=== PATIENT | male | born 1945 | race Caucasian/White ===

== ENCOUNTER 2020-07-31 15:30 | Outpatient (CLI) | payer MEDICARE, SELFPAY ==
--- NOTE | ~2020-07-31 | XR_ITS ---
EXAMINATION: XR shoulder RT min 2V DATE: 07/31/2020 15:49 INDICATION: Pain at the right acromioclavicular joint and decreased range of motion at the right shou lder TECHNIQUE: AP internally and externally rotated, AP oblique externally rotated and transscapular Y vi ews of the right shoulder were obtained. COMPARISON: None FINDINGS: Normal alignment. No fracture. Glenohumeral joint is normal. Moderate acromioclavicular osteoarthrit is with inferiorly directed osteophytes. Soft tissues are unremarkable. Visualized portions of the nolan ngs are clear. IMPRESSION: Moderate right acromioclavicular osteoarthritis. Reviewed, dictated and finalized at location B.
== END 2020-07-31 15:31 | disposition home or self-care (01) ==
PROVIDERS: PCP Family Medicine; Visit Provider Family Medicine
DX: M25.511 Pain in right shoulder (principal); M19.011 Primary osteoarthritis, right shoulder
CPT/HCPCS: 73030

== ENCOUNTER → 2023-05-23 12:14 | Outpatient (CLI) | payer MEDICARE, SELFPAY ==
--- NOTE | ~2023-05-23 | XR_ITS ---
EXAMINATION: XR abdomen/kub 1V DATE: 05/23/2023 12:24 INDICATION: Left flank pain. TECHNIQUE: A supine view of the abdomen on 2 radiographs was obtained. COMPARISON: CT abdomen and pelvis 02/25/2019 FINDINGS: There are no dilated loops of bowel. There are phleboliths in the pelvis. IMPRESSION: 1. No visible urolithiasis. Reviewed, dictated and finalized at location B. IMPRESSION: 1. No visible urolithiasis.
== END ==
PROVIDERS: PCP Family Medicine; Visit Provider Nurse Practitioner Family
DX: R10.9 Unspecified abdominal pain (principal)
CPT/HCPCS: 74018

== ENCOUNTER → 2023-06-02 09:15 | Outpatient (CLI) | payer MEDICARE, SELFPAY ==
--- NOTE | ~2023-06-02 | MR_ITS ---
EXAMINATION: MR lumbar spine wo con DATE: 06/02/2023 09:42 INDICATION: Low back pain. TECHNIQUE: Magnetic resonance imaging (MRI) of the lumbar spine was performed without intravenous con trast. Sequences included sagittal T2-weighted FSE, sagittal T2-weighted FS FSE, sagittal T1-weighted FSE, and axial T2-weighted FSE. COMPARISON: None FINDINGS: There is 3 mm retrolisthesis of L2 on L3 and L3 on L4. Vertebral body heights are normal. T here is moderately decreased disc height at L2-L3 and L3-L4. The distal spinal cord signal intensity is normal. The conus medullaris is at L1-L2. The following disc levels are specifically discussed: L1-L2: The disc does not extend beyond the endplate margin. There is mild bilateral facet joint osteo arthritis. There is no neural foraminal stenosis. There is no central canal stenosis. L2-L3: The disc is bulging and has an annular fissure. There is moderate right and mild left facet justine int osteoarthritis. There is mild bilateral neural foraminal stenosis. There is mild central canal st enosis. L3-L4: The disc is bulging and has an annular fissure. There is moderate bilateral facet joint osteoa rthritis. There is mild right and moderate left neural foraminal stenosis. There is mild central jovanni l stenosis. L4-L5: The disc is bulging and has an annular fissure. There is severe bilateral facet joint osteoart hritis. There is a 5 mm synovial cyst of right facet joint in the epidural space. There is mild bilat eral neural foraminal stenosis. There is moderate central canal stenosis. There is severe stenosis of right lateral recess. L5-S1: The disc is bulging. There is severe bilateral facet joint osteoarthritis. There is mild bilat eral neural foraminal stenosis. There is mild central canal stenosis. IMPRESSION: 1. Moderate lumbar spondylosis. Reviewed, dictated and finalized at location A.
== END ==
PROVIDERS: PCP Family Medicine
DX: M54.50 Low back pain, unspecified (principal); M43.06 Spondylolysis, lumbar region
CPT/HCPCS: 72148

== ENCOUNTER → 2023-08-08 11:17 | Outpatient (CLI) | payer MEDICARE, SELFPAY ==
--- NOTE | ~2023-08-08 | CT_ITS ---
Non-contrast CT scan of the Abdomen and Pelvis Clinical indication: Kidney stone Technique: 2.5 mm axial scans were obtained through the abdomen and pelvis without intravenous or or al contrast. Dose reduction technique was used on this scan by utilizing automated exposure control a nd iterative reconstruction technique. The dose-length product (DLP) was 262.58 mGy-cm. Findings: Images through the lung bases reveal no abnormalities. There is a probable 4 mm distal left ureteral stone, but no hydronephrosis. No right renal or right u reteral stone. No right hydronephrosis. The liver, spleen, pancreas, gallbladder, and adrenals appear normal. There are atherosclerotic calci fications of the aorta. There is no evidence of bowel obstruction. Images through the pelvis were performed. There is no evidence of ascites or lymphadenopathy. Urinary bladder unremarkable. No pelvic mass seen. No ascites. Impression: 4 mm distal left ureteral stone, but no hydronephrosis. Reviewed, dictated and finalized at [facility]. Impression: 4 mm distal left ureteral stone, but no hydronephrosis.
== END ==
PROVIDERS: PCP Family Medicine
DX: N20.0 Calculus of kidney (principal)
CPT/HCPCS: 74176

== ENCOUNTER → 2023-09-04 08:17 | Outpatient (CLI) | payer MEDICARE, SELFPAY ==
--- NOTE | ~2023-09-04 | US_ITS ---
Renal-Bladder ultrasound Clinical History: Ureterolithiasis Technique: Real-time sonographic imaging of the kidneys and urinary bladder was performed. Findings: The right kidney measures 10.7 cm in length and the left kidney measures 10.5 cm. There is no hydronephrosis or renal calculus identified. Renal cortical echogenicity is within normal limits. No renal mass lesion is identified. The urinary bladder is moderately distended at the time of this exam. No intraluminal echoes are iden tified. No abnormal wall thickening is seen. Impression: Unremarkable ultrasound of the kidneys and urinary bladder. Reviewed, dictated and finalized at location M. SCAN TECHNICIAN Impression: Unremarkable ultrasound of the kidneys and urinary bladder.
== END ==
PROVIDERS: PCP Family Medicine
DX: N20.1 Calculus of ureter (principal)
CPT/HCPCS: 76775

== ENCOUNTER 2024-06-21 09:06 | Emergency (ER) | payer MEDICARE, SELFPAY ==
[2024-06-21] VITALS (10 sets, daily range): BP systolic 136–144; BP diastolic 67–84; PULSE 59–78; RESP 14–18; TEMP 36.5; O2SAT 97–99
--- NOTE | ~2024-06-21 | CT_ITS ---
CT of the Abdomen and Pelvis: Indication: Left lower quadrant pain Technique: 2.5 mm axial scans were obtained through the abdomen and pelvis following intravenous adm inistration of 100 cc of Omnipaque 350. Dose reduction technique was used on this scan by utilizing a utomated exposure control and iterative reconstruction technique. The dose-length product (DLP) was 4 33.92 mGy-cm. COMPARISON: 08/08/2023 Findings: Scans through the lung bases are unremarkable. Probable diffuse hepatic steatosis. The spleen, pancreas, gallbladder, adrenals and right kidney are within normal limits. There is a 5 mm left UVJ stone, with mild to moderate left hydroureteronephrosi s, and extensive left perinephric stranding/fluid. There are atherosclerotic calcifications of the ao rta. No lymphadenopathy. No bowel obstruction or bowel wall thickening. There is no evidence to suggest acute appendicitis. Images through the pelvis were performed. Urinary bladder otherwise unremarkable. No pelvic mass seen . No ascites. Small fat-containing right inguinal hernia noted. Impression: 5 mm left UVJ stone, with mild to moderate left hydroureteronephrosis and extensive left perinephric stranding/fluid. Probable diffuse hepatic steatosis. Reviewed, dictated and finalized at location . Impression: 5 mm left UVJ stone, with mild to moderate left hydroureteronephrosis and exten sive left perinephric stranding/fluid. Probable diffuse hepatic steatosis.
[2024-06-21 09:33] LABS: Basophils Percent Auto 0.4 % (0.2-1.2); Eosinophils Percent Auto 0.3 % (0-4.4); Hematocrit 44.4 % (42.0-52.0); Hemoglobin 14.4 g/dL (14.0-18.0); Immature Granulocyte Absolute 0.04 K/mm3 (0.00-0.031); Immature Granulocyte Percent A 0.4 % (0-0.5); Lymphocytes Absolute Auto 1.49 K/mm3 (0.9-3.2); Lymphocytes Percent Auto 13.8 % (18.3-44.2); Mean Corpuscular HGB Conc 32.4 g/dl (32-36); Mean Corpuscular Hemoglobin 31.5 pg (26-34); Mean Corpuscular Volume 97.2 fl (80-100); Mean Platelet Volume 10.7 fl (7.4-10.4); Monocytes Absolute Auto 1.1 K/mm3 (0.1-0.6); Monocytes Percent Auto 9.8 % (2.6-8.5); Neutrophils Absolute Auto 8.2 K/mm3 (1.3-6.7); Neutrophils Percent Auto 75.3 % (45.5-73.1); Platelet Count Result 159 k/mm3 (150-375); Red Blood Count 4.57 M/mm3 (4.6-6.20); Red Cell Distribution Width 13.2 % (11.5-14.5); White Blood Count 10.8 K/mm3 (4.5-10.0)
[2024-06-21 09:37] LABS: Alanine Aminotransferase 19 U/L (6-50); Albumin Level 4.2 g/dL (3.5-5.1); Alkaline Phosphatase 41 U/L (38-126); Anion Gap 9 mmol/L (4-12); Aspartate Amino Transferase 28 U/L (17-59); Bilirubin,Total 0.7 mg/dL (0.2-1.3); Blood Urea Nitrogen 30 mg/dL (9-20); Calcium 8.8 mg/dL (8.4-10.2); Carbon Dioxide 23 mmol/L (22-30); Chloride 102 mmol/L (98-107); Estimated CRCL calculation 56 ml/min; Estimated Glomerular Filt Rate > 60; Glucose 122 mg/dL (65-110); Lipase 75 U/L (23-300); Potassium 4.7 mmol/L (3.4-5.0); Sodium 134 mmol/L (137-145)
--- NOTE | 2024-06-21 09:41 | ED.ABDPAIN ---
HPI - Abdominal Pain General Chief Complaint: Abdominal Pain Stated Complaint: abd pain Time Seen by Provider: 06/21/24 09:19 Source: patient and family Mode of arrival: ambulatory Limitations: no limitations History of Present Illness HPI narrative: Patient presents with left lower quadrant abdominal pain associated with vomiting and diarrhea. Symptoms started this morning. He notes this has happened twice previously in the past few years. Does not regularly follow with a white lead grinder. No prior diagnoses of diverticular disease though his last colonoscopy was performed approximately 15 years ago (here at [place], believes a Dr Lee - last name unknown). He does have a history of kidney stone that spontaneously resolved and did not require surgical intervention or procedure. Does feel slightly nauseated at this time. His last bowel movement this morning was watery but he denies any blood in it. Last oral intake was last evening approximately 6:00 p.m.. He does continue to have an appetite. No fevers although he felt cold earlier. His urine output has been okay, possibly slightly decreased. History of prostatectomy after prostate cancer diagnosis. Related Data Home Medications Medication Instructions Recorded Confirmed dorzolamide-timolol (PF) 2 %-0.5 % 1 drp EACH EYE ONCE 08/03/21 04/05/24 eye drops in a dropperette latanoprost 0.005 % eye drops 1 drp EACH EYE DAILY 08/03/21 04/05/24 Allergies Allergy/AdvReac Type Severity Reaction Status Date / Time No Known Allergies Allergy Mild Verified 04/05/24 13:19 [facility] Past Medical History Medical History (Updated 06/21/24 @ 10:48 by Anuja oFng MD) Hepatitis C antibody test negative (02/21/20) Kidney stones Prostate cancer Vomiting Surgical History Surgical History H/O hemorrhoidectomy History of colonoscopy approx 1998 @ [facility]; History of prostatectomy (03/30/19) Family History Family History Sibling Hypertension Malignant neoplasm of prostate Mother Hypertension, Onset Age: 103 Father Hypertension, Onset Age: 92 Malignant neoplasm of prostate, Onset Age: 92 Social History Social History Social History: Caffeine-tea Smoking status: Former smoker Tobacco type: cigars Alcohol intake: current Substance use: never Substance use type: does not use Lack of Transportation: No Lack of Food: Never True Current Housing: I Have Housing Concerned About Future Housing: No Difficulty Paying Gas/Electric Bills: No Difficulty Paying for Meds: No Currently Unemployed: No Difficulty w/ Childcare or Family Care: No Living arrangements: with family Occupation/Education: retired Gender identity (if verbalized by the patient): Male Sexual Orientation (if Verbalized by the Patient): Straight or Heterosexual Agree to blood products: Yes Exam Narrative: GENERAL: Well-appearing, well-nourished, and in no acute distress. HEAD: Normocephalic, atraumatic. EYES: Non injected, non icteric ENT: Nares clear, no rhinorrhea or epistaxis. Moist mucous membranes. NECK: Supple. CHEST: Speaking in full sentences. No respiratory distress. HEART: Regular rate and rhythm. . ABDOMEN: Soft, nondistended. No tenderness to palpation including in the left lower quadrant. No rigidity or guarding. Not peritoneal. Well-healed surgical scar superior umbilicus and lateral umbilicus. EXTREMITIES: Normal range of motion. No lower extremity edema. SKIN: Warm, dry, no rash. NEURO: No focal deficits. Alert and oriented x3. PSYCH: Normal mood and affect. Course Vital Signs Vital signs: Vital Signs Temperature 97.7 F 06/21/24 09:07 Pulse Rate 60 06/21/24 09:07 Respiratory Rate 18 06/21/24 09:07 Blood Pressure 13
[2024-06-21 10:13] LABS: Appearance Urine Clear (Clear); Color Urine Yellow (Yellow); Protein Urine Negative (Negative); Specific Grav Ur > 1.030 (1.001-1.035); pH Urine 5.5 (5.0-9.0)
[2024-06-21 10:14] LABS: Add Urine Microscopic? NO; Bilirubin Urine Negative (Negative); Blood Urine Negative (Negative); Glucose Urine UA Negative (Negative); Ketones Urine Negative (Negative); Leukocyte Esterase Ur Negative LEU/UL (Negative); Nitrate Urine Negative (Negative); Urobilinogen Urine 0.2 mg/dL (<2.0)
[2024-06-21] MEDS: SODIUM CHLORIDE 0.9% IV 1,000 ML 999 ML IV CONT (10:25)
[2024-06-21] MEDS: ONDANSETRON INJ 4 MG/2 ML VIAL IV PUSH (10:26)
[2024-06-21] MEDS: MORPHINE SULFATE (*CRX) 4 MG/ML INJ IV PUSH (10:26)
[2024-06-21 10:29] LABS: Magnesium 1.7 mg/dL (1.6-2.3)
[2024-06-21] MEDS: TAMSULOSIN HCL 0.4 MG CAPSULE PO (10:58)
[2024-06-21] MEDS: KETOROLAC 15 MG/ML VIAL (*BKC) IV PUSH (11:00)
== END 2024-06-21 12:00 | disposition home or self-care (01) ==
PROVIDERS: Emergency Provider Student in an Organized Health Care Education/Training Program; PCP Family Medicine
DX: N13.2 Hydronephrosis with renal and ureteral calculous obstruction (principal); D72.829 Elevated white blood cell count, unspecified; R79.89 Other specified abnormal findings of blood chemistry; K76.0 Fatty (change of) liver, not elsewhere classified; Z87.891 Personal history of nicotine dependence
CPT/HCPCS: 36415; 74177; 80053; 81003; 83690; 83735; 85025; 96361; 96374; 96375; 99284; A9270; J1885; J2270; J2405; J7030; Q9967

== ENCOUNTER 2024-10-08 08:56 | Outpatient (CLI) | payer MEDICARE, SELFPAY ==
--- NOTE | ~2024-10-08 | XR_ITS ---
EXAMINATION: XR heel LT min 2V DATE: 10/08/2024 09:03 INDICATION: One month of left heel pain TECHNIQUE: Lateral and axial views of the left calcaneus were obtained. COMPARISON: None. FINDINGS: Alignment is normal. No fracture. Joint spaces are normal. No cortical erosions or periosteal reactio n. There appears to be fusiform thickening of the Achilles tendon suggestive of tendinosis. Soft tiss ues are otherwise unremarkable. No ankle joint effusion. IMPRESSION: 1. Suggestion of Achilles tendinosis although assessment is limited with plain radiographs. Otherwise unremarkable radiographs of the left heel/hindfoot. Reviewed, dictated and finalized at location A. RINTENDENT STEVEDORING
== END 2024-10-08 08:57 | disposition home or self-care (01) ==
LOC: GOSHIMG 08:57
PROVIDERS: PCP Family Medicine; Visit Provider Nurse Practitioner
DX: M79.672 Pain in left foot (principal); G89.29 Other chronic pain
CPT/HCPCS: 73650

== ENCOUNTER 2025-03-01 14:18 | Outpatient (CLI) | payer MEDICARE, SELFPAY ==
--- NOTE | ~2025-03-01 | XR_ITS ---
XR hip RT 2V w AP pelvis Ordering provider: Carrol Tyler PULMONARY FELLOW-C History: . Pain in right hip, no injury . Comparison: None. FINDINGS: BONES: Sclerotic area in the right femoral neck. CT evaluation advised. HIP JOINT SPACES: Normal. SACROILIAC JOINT SPACES/LUMBAR SPINE: The sacroiliac joint spaces are normal. Mild degenerative davis es of the visualized lower lumbar spine. PUBIC SYMPHYSIS: Normal. SOFT TISSUES: Normal. IMPRESSION: Sclerotic area in the right femoral neck. CT evaluation to exclude a fracture is advised Reviewed, dictated and finalized at location A. IMPRESSION: Sclerotic area in the right femoral neck. CT evaluation to exclude a fracture i s advised
== END 2025-03-01 14:19 | disposition home or self-care (01) ==
LOC: GOSHIMG 14:19
PROVIDERS: PCP Family Medicine; Visit Provider Nurse Practitioner
DX: M84.351A Stress fracture, right femur, initial encounter for fracture (principal); X58.XXXA Exposure to other specified factors, initial encounter
CPT/HCPCS: 73502

== ENCOUNTER 2025-03-03 15:15 | Outpatient (CLI) | payer MEDICARE, SELFPAY ==
--- NOTE | ~2025-03-03 | CT_ITS ---
EXAMINATION: CT femur RT wo con DATE: 03/03/2025 15:36 INDICATION: Abnormal extra the right hip raising concern for fracture. TECHNIQUE: High resolution computed tomography (CT) of the right femur was performed without intraven ous contrast. Additional sagittal and coronal reconstructions were performed. Automated exposure cont rol and iterative reconstruction technique were employed. The dose-length product was 1102.83 mGy-cm. COMPARISON: None FINDINGS: Bone alignment is normal. No fracture. Mild osteoarthritis at the right hip and knee with mild subart icular cystlike changes along the superior rim of the right acetabulum and at the patellar apical rid ge the lateral facet and lateral trochlea. There is a small right knee joint effusion. 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 Small fat-containing right inguinal hernia. Visualized portion of the right hemipelvis otherwise unr emarkable. No pathologically enlarged right pelvic or inguinal lymphadenopathy. Mild scattered athero sclerotic calcifications along the right common femoral, femoral and popliteal arteries. Soft tissues in the right thyroid otherwise unremarkable. IMPRESSION: 1. No fracture or other acute osseous abnormality. 2. Mild right hip and knee osteoarthritis with small right knee joint effusion. Reviewed, dictated and finalized at location A.
--- OUTSIDE RECORDS SUMMARY | 2025-03-03 15:19 | XMS_ITS | Continuity of Care Document ---
Author Organization [facility] Address [address] [address] [place] [address] Phone Care Team Providers Care Relief Captain Name Role Phone [facility] Unavailable Unavail able Renee Rodriguez Unavailable Unavailable Procedures Procedure Date Progressive Lens, Plastic Ultra Deluxe Frame Progressive Lens Per Lens Polycarb Lens Per Lens Scratch Resistant Coating UV Coat Advance Directives Directive Yes / No Effective Date File Name No Information Encounters Encounter Description Practice Location Reason(s) For Visit Diagnoses Date Provider Providers Copied on Encounter [facility], [address] [place] [address] [address], [place], [place], [id number], [place] tel:[phone] [facility] No Information 7 [facility] [address] [facility], [address], [id number] , [place]. [phone] Consulting Provider: Renee Rodriguez, [address] [place] [address], [address]. tel:[phone] [facility], [address] [place] [address] [address], [place], [place], [id number], [place] tel:[phone] [facility] No Information 7 [facility] [address] [facility], [address], [id number] , [place]. [phone] Referring Provider: Ben Santos MD , [address] [place] [address], [address]. tel:[phone] lting Provider: Renee Rodriguez, [address] [place], [address]. tel:[phone] Family History Family Member Type Diagnosis Age At Onset No Information Payers Payer name Insurance type Covered alliance party ID Authoriza tion(s) No Information Social History Type Description Quantity Date Captured Comments Sex Male Smoking Status No Information Chief Complaint And Reason For Visit No Information Reason For Referral Reason For Referral No Information History Of Present Illness Encounter Date Complaint History Of Prese nt Illness No Information Functional Status Date Functional Assessmen t No Information Instructions Date Instruction Additional Infor mation No Information Assessments Type Assessment Date No Information Patient Care Teams Name Effective Dates (start - stop) Status Members No Information
--- OUTSIDE RECORDS SUMMARY | 2025-03-03 15:19 | XMS_ITS | Data Portability ---
Author Organization [employer], [facility] Address [address] [address] Care Team Providers Care Braddisher Name Role Phone TRACEY DEWITT Referring Provider Assessment No assessment recorded. Plan of Treatment Reminders Order Date Submit Date Provider Last Modified By Organization Details Last Modified Time Details Appointments None recorded. Lab None recorded. Referral None recorded. Procedures None recorded. Surgeries None recorded. Imaging XR, knee - WEIGHT BEARING AP, PA FLEX AND LATERAL VIEWS WITH A STANDARD [place] [facility] 2022 023 [email or web address] Not available 3 16:15:30 XR, lumbar spine 2022 023 [email or web address] Not available 3 16:00:01 MRI, lumbar spine, w/o contrast - Patient has failed conservativ e treatments greater than 6 weeks , PT NSAID's 2022 023 [email or web address] Not available 3 16:44:43 x-ray, ankle - room 7 2014 015 [email or web address] Not available 6 09:21:58 Medication Orders None recorded. Patient TargetsNo targets recorded. Patient InstructionsNo instructions recorded. Reason for Referral None Reported. Results Created Date Observation Date Name Description Value Unit Range Abnormal Flag Note LastModifiedBy Organization Detail LastModifiedTime 06/02/2006/02/2023 MRI, lumba r spine , w/o contr ast No observ ation record ed. [email or web address] [facility] [address], [place], [address], 06/03/2023 10:35:57 Result Notes None recorded. Problems Name Problem SNOMED Code Status Onset Date Resolution Date Notes Provider Name and Address Organization Details Recorded Time Heel pain 3248605 Active Mindy Perez [address], [place], [address], [place] [facility] 5 18:47:30 Achilles tendinitis 68836019 [place] [address], [place], [address], [place] [facility] 5 07:33:58 Strain of Achilles tendon 82721839 [place] [address] [facility] [address], [place], [address], [place] [facility] 5 07:33:58 Ankle pain 124938116 [place] [address], [place], [address], [place] [facility] 5 07:33:58 Problem Notes None recorded. Procedures Surgical History Date Name Laterality Status Provider Name and Address Organization Details Recorded Time 3 Generic Procedure completed BERHANE MCKENNA [address] [facility] [address] [facility],[address], [place], [address], [place] [facility] 06/12/2023 15:22:57 3 Generic Procedure completed BERHANE MCKENNA [address] [address] [facility] [address], [place], [address], [place] [facility] 05/13/2023 10:27:30 5 Generic [place] [address] [address] [facility] [address], [place], [address], [place] [facility] 05/09/2015 10:17:06 Imaging Results Imaging Date Name Status LastModified by Organiz [facility] Details LastModified Time 06/02/2023 MRI, lumbar spine, w/o contrast completed [email or web address] [facility] [address], [place], [address], 06/03/2023 10:35:57 Procedure Notes None recorded. Medical Equipment None Reported. Allergies No known drug allergies Medications Name Sig Start Date Stop Date Status Note LastModified by Organization Details LastModified Time latanoprost 0.005 % eye drops INSTILL 1 DROP INTO EACH EYE AT BEDTIME active Not Available Not Available No t Available pravastatin 40 mg tablet TAKE 1 TABLET BY MOUTH EVERY DAY AT BEDTIME active Not Available Not Available No t Available hydrocodone 5 mg-acetamino phen 325 mg tablet Take 1 or 2 tabs PO Q 4-6 PRN Pain active Not Available Not Available No t Available sildenafil 100 mg tablet TAKE ONE TABLET BY MOUTH APPROXIMATE LY 30 MINUTES TO 4 HOURS BEFORE SEXUAL ACTIVITY. DO NOT USE MORE THAN ONE DOSE DAILY active Not Available Not Available No t Available pravastatin 10 mg tablet 1 tablet every day by oral route. active Not Available Not Available No t Available tamsulosin 0.4 mg capsule TAKE 1 CAPSULE BY MOUTH ONCE DAILY FOR 30 DAYS active Not Available Not Available No t Available lisinopril 10 mg tablet TAKE 1 TABLET BY MOUTH ONCE DAILY active Not Available Not Available No t Available lidocaine 5 % topical patch APPLY ONE PATCH TO MOST PAINFUL AREA AND LEAVE ON FOR UP TO 12 HOURS. ONLY USE ONE PATCH PER DAY active Not Available Not Available No t Available dorzolamide 22.3 mg-timolol 6.8 mg/mL eye drops INSTILL 1 DROP INTO EACH EYE ONCE DAILY IN THE MORNING active Not Available Not Available No t Available pravastatin 20 mg tablet TAKE 1 TABLET BY MOUTH ONCE DAILY active Not Available Not Available No t Available triamcinolon e acetonide 0.1 % lotion APPLY LOTION TOPICALLY TWICE DAILY active Not Available Not Available Not Available timolol maleate 0.5 % eye drops 1 drop every day by ophthalmic route. active Not Available Not Available No t Available morphine 15 mg immediate release tablet TAKE 1/2 (ONE-HALF) TABLET BY MOUTH EVERY 4 HOURS FOR 5 DAYS NEEDED FOR PAIN active Not Available Not Available No t Available ondansetron 4 mg disintegrati ng tablet active Not Available Not Available No t Available brimonidine 0.15 % eye drops active Not Available Not Available Not Available neomycin-betito itracin-poly -HC 3.5 mg-400-10,00 0 unit/g-1 % eye ointment active Not Available Not Available Not Available Travatan Z 0.004 % eye drops 1 drop every day by ophthalmic route. active Not Available Not Available No t Available AzaSite 1 % eye drops active Not Available Not Available No t Available Suprep Bowel Prep Kit 17.5 gram-3.13 gram-1.6 gram oral solution active Not Available Not Available Not Available Lumigan 0.01 % eye drops active Not Available Not Available Not Available Cosopt (PF) 2 %-0.5 % eye drops in a dropperette active Not Available Not Available Not Available brimonidine tartrate (bulk) 2012 active Not Available Not Available Not Avai lable Paxlovid 300 mg (150 mg x 2)-100 mg tablets in a dose pack TAKE 3 TABLETS TOGETHER (TWO 150 MG NIRMATRELVI R TABLETS AND ONE 100 MG RITONAVIR TABLET) BY MOUTH TWICE DAILY FOR 5 DAYS. active Not Available Not Available No t Available Vitals Date Recorded Body weight Heart rate Body mass index (BMI) Body height Systolic blood pressure Diastolic blood pressure Provider Name and Address Organization Details Last Updated DateTime 5 39435.7 029 g 65 /min 23.1 kg/m2 182.88 cm 127 mm[Hg] 79 mm[Hg] Kanwal Esposito [facility] [email or web address] 5 14:49:48 Date Recorded Body weight Body height Body mass index (BMI) Provider Name and Address Organization Details Last Updated DateTime 10/04/2015 14202.7029 g 182.88 cm 23.1 kg/m2 Anahy Vázquez [facility] [email or web address] 10/04/2015 10:25:35 Date Recorded Body height Body mass index (BMI) Body weight Heart rate Oxygen saturation Oxygen saturation in Arterial blood by Pulse oximetry Systolic blood pressure Diastolic blood pressure Provider Name and Address Organization Details Last Updated DateTime 3 182.88 cm 23.1 kg/m2 45011.7 g 58 /min 98 % 98 % 120 mm[Hg] 78 mm[Hg] Daily West [facility] [employer] [facility], [employer] 3 09:10:24 Date Recorded Body height Body weight Provider Name and Address Organization Details Last Updated DateTime 06/05/2023 182.88 cm 18489.7 g Kanwal Esposito [employer] [facility], [employer] 06/05/2023 15:01:25 Date Recorded Body height Provider Name an d Address Organization Details Last Updated DateTime 06/30/2023 182.88 cm Trina Mcbride [employer] [facility], [employer] 06/30/2023 15:28:11 Social History Question Answer Notes LastModified by Organizat ion Details LastModified Time Tobacco Smoking Status Unknown If Ever Smoked Mindy Perez [address], [place], [address], [employer] [facility], [employer] 03/29/2015 07:26:25 Auto Related Injury? No Information not available 06/30/2023 What Is Your Level Of Caffeine Consumption? Moderate Information not available 03/27/2015 Diabetes No Information no t available 06/30/2023 What Type Of Diet Are You Following? REGULAR Information not available 03/27/2015 Education Post Graduate Information not available 06/30/2023 Who Is Your Employer? Retired Information not available 03/27/2015 Which Of Your Hands Is Dominant? Right Information not available 03/27/2015 Hard Of Hearing Or Deaf In One Or Both Ears? No Information not available 06/30/2023 High Blood Pressure Yes Information not available 06/30/2023 High Cholesterol Yes Informat ion not available 06/30/2023 Hobbies/Activiti es Golf, Wine Making Information not available 06/30/2023 Single Or Multi-level Home/work? Multi Level Home Information not available 06/30/2023 Legally Blind In One Or Both Eyes? No Information not available 06/30/2023 Live Alone Or With Others? With Others Information not available 06/30/2023 Marital Status Informatio n not available 06/30/2023 How Many Children Do You Have? 2 Information not available 03/27/2015 If Injured, Is Litigation Ongoing? No Information not available 06/30/2023 What Is Your Parents' Marital Status? Information not available 03/27/2015 Seat Belts Used Routinely Yes Information not available 06/30/2023 Are You Sexually Active? Yes Information not available 03/27/2015 Smoke Alarm In Home Yes Information not available 06/30/2023 What Types Of Sporting Activities Do You Participate In? Golf Information not available 03/27/2015 General Stress Level Low Information not available 06/30/2023 Do You Use Sunscreen Routinely? Yes Information not available 03/27/2015 Work Related Injury? No Information not available 06/30/2023 Year In School College Informatio n not available 06/30/2023 Sex: Unknown Functional Status Question Answer Note LastModified by Organizat ion Details LastModified Time What is your level of alcohol consumption? Moderate Information not available 03/27/2015 Are you currently employed? 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 Occasional Information not available 03/27/2015 Mental Status None recorded. Family History Relationship Description Onset Age of this Age Resolved Age Notes LastModified by Organization Details LastModified Time Mother Alzheimer's disease 90 [email or web address] Not available 2014 10:25:35 Mother Dementia 90 [email or web address] Not available 10/04/2015 10:25:35 Medical History Condition Response Coronary Artery Disease N HIV or AIDS N Gout N Kidney Stones N Hyperthyroidism N Hernia N Head Trauma/Injury N Blood Clots N Lung Disease N Hypothyroidism N Depression N COPD N Pacemaker N Anxiety Disorder N Arthritis N Cancer N Stroke N Neck Injury N Leg or Foot Ulcers N High Cholesterol N Liver Disease N Rheumatoid Arthritis N Headaches N Fibromyalgia N Kidney Disease N Heart Problems N Migraines N Thyroid Problems N Anemia N Multiple Sclerosis N Ulcers N Heart Attack (SD) N Diabetes N Bleeding Disorder N Seizures/Epilepsy N Tuberculosis N Urinary Tract Infection N Back Problems N Diverticulitis N Asthma N Lupus N Peripheral Vascular Disease N Sleep Disorder N GERD/Reflux N Hepatitis N Aneurysm N Heart Disease N Pulmonary Embolism N Hypertension N Osteoporosis N Immunizations Vaccine Type Date Status Note Provider Nam e and Address Organization Details Recorded Time mumps 10/20/2014 completed Kanwal marcano [facility] 06/02/2015 14:41:56 tetanus toxoid, unspecified formulation 10/20/2014 completed Kanwal marcano [facility] 06/02/2015 14:41:56 measles 10/20/2014 monique marcano [facility]/2015 14:41:56 Past Encounters Encounter ID Performer Location Encounter Start Date Encounter Closed Date Diagnosis/Indication Diagnosis SNOMED-CT Code Diagnosis ICD10 Code Diagnosis Note [id number] Tracey Dewitt MD [facility] [address] [place] [address] 03/27/2015 08:21:59 03/27/2015 10:21:12 Heel pain 5651891 Achilles tendinitis 53216808 Strain of Achilles tendon 96052347 [id number] Tracey Dewitt MD [facility] [address] [place] [address] 05/09/2015 09:18:25 05/10/2015 09:46:33 Strain of Achilles tendon 39806129 Achilles tendinitis 85377309 Heel pain 3879519 [id number] Tracey Dewitt MD [facility] [address] [place] [address] 06/02/2015 14:31:20 06/02/2015 15:12:20 [id number] Tracey Dewitt MD [facility] [address] [place] [address] 10/04/2015 09:36:03 10/05/2015 11:04:00 Ankle pain 847055651 M25.579 Strain of Achilles tendon 29877444 S86.012A Achilles tendinitis 1165 4001 M76.62 [id number] BERHANE MCKENNA [facility] [address] [place] [address] 05/13/2023 08:38:21 05/13/2023 10:10:44 Low back pain 182234670 M54.50 Lumbar spondylosis 80512 0009 M47.896 At todays office visit the patient s diagnosis and treatment options were discussed in great detail. The patient was provided with informatio n to make an informativ e decision on the next steps for treatment. Given that the patient has failed conservati ve measures including but not limited to PT, NSAIDs and rest without beneficial relief I do feel it is reasonable to undergo an MRI of the lumbar spine and follow up to discuss treatment options. The MRI will provide necessary informatio n to determine the next course of action for the patient in his treatment plan. All questions were answered and the patient understood the treatment plan.The patients case and treatment plan were discussed with Dr. Dewitt. [id number] BERHANE MCKENNA [facility] [address] [facility] ,[address] [facility] [place] [address] 06/05/2023 13:54:06 06/05/2023 16:15:30 Knee pain 71477323 M25.569 Lumbar spondylosis 93524 0009 M47.896 At today s office visit the patient s diagnosis and treatment options were discussed in great detail. The patient was provided with informatio n to make an informativ e decision on the next steps for treatment. The patient has tried several conservati ve measures including but not limited to PT, rest, ice, and NSAIDs with no beneficial relief. Given the imaging results and the duration of the patient s symptoms I would recommend BMAC with fat as they are an excellent candidate. We discussed the need for PRP at [facility] the 12-week monica. The risk and benefits were discussed with the patient as well as functional and pain improvemen t outcomes. The procedure was discussed in detail as well as the recovery period. We also discussed obtaining labs and completing a TOV to ensure the patient is optimized for maximal results. I also discussed other conservati ve options. The patients case and treatment plan were reviewed in detail with Dr. Dewitt. PLAN: I. Complete TOV II. BMC/fat to L2-3, L3-4 and L4-5 disc and facets L5-S1 facets All questions were answered, the patient understood the treatment plan. [id number] BERHANE MCKENNA [facility] [address] [place] [address] 06/30/2023 15:17:02 06/30/2023 15:28:25 Bilateral osteoarthritis of knees 9058792865 26872 M17.0 Health Concerns Section Related Observation LastModified by Organization Detai ls LastModified Time None Recorded Concern Status LastModified by Organization Details LastModified Time None Recorded Advance Directives Directive None Recorded Payers Encounter Date Sequence Insurance Name Policy Number Policy Vásquez Covered Member ID Vásquez Member ID Guarantor Name 06/02/2015 2 [employer] HE[employer]CARE OPTION - PLAN F (MEDICARE SUPPLEMENT) Gigi Story [id number] Gigi Story 06/02/2015 1 MEDICARE B: [place] [employer] - RAILROAD MEDICARE Gigi Story [id number] Gigi Story 10/04/2015 2 [employer] HEALTHCARE OPTION - PLAN F (MEDICARE SUPPLEMENT) Gigi Story [id number] Gigi Story 10/04/2015 1 MEDICARE B: [place] [employer] - RAILROAD MEDICARE Gigi Story [id number] Gigi Story 05/13/2023 2 [employer]ARP HEALTHCARE OPTION - PLAN F (MEDICARE SUPPLEMENT) Gigi Story [id number] Gigi Story 05/13/2023 1 MEDICARE B: [place] [employer] - RAILROAD MEDICARE Gigi Story [id number] Gigi Story 06/05/2023 2 [employer]ARP HEALTHCARE OPTION - PLAN F (MEDICARE SUPPLEMENT) Gigi Story [id number] Gigi Story 06/05/2023 1 MEDICARE B: [place] [employer] - RAILROAD MEDICARE Gigi Story [id number] Gigi Story 06/30/2023 2 [employer]ARP HEALTHCARE OPTION - PLAN F (MEDICARE SUPPLEMENT) Gigi Story [id number] Gigi Story 06/30/2023 1 MEDICARE B: [place] [employer] - RAILROAD MEDICARE Gigi Griggs Dolucinda [id number] Gigi Griggs Jez Notes Date Note Type Note Provider Name and Address Organization Details Recorded Time 06/02/2015 text/html note was never transcribed - too much time has passed to reproduce Jeanette marcano [employer], [employer] 12/17/2015 09:22:10 05/13/2023 text/html 77-year-old male comes in today complaining of pain and discomfort in his back he states that he has pain and discomfort that radiates into the right hip occasionally radiating on the lateral side of the left calf. He has had no known injury to the lumbar spine. The pain has continuously gotten better. He describes his pain as a dull ache in regards to the back and when it extends into leg it is a sharp stabbing pain. He rates his pain as a 3 to 4/10. He states taking the weight off his back helps him. He does occasionally get numbness that extends into the left lower extremity if he is standing for prolonged period of time it does resolve with movement. He has tried physical therapy, exercise and pain medications. He also utilizes a inversion table for relief.Patient also states that he does have pain and discomfort in his right knee which he is aware is arthritic in his left knee which she is aware has a meniscal tear in his right foot which she believes he has plantar fasciitis as well. Patient does have a significant history of prostate cancer back in 2019 he had a complete prostatectomy. BERHANE MCKENNA [address], [place], [address], [employer] [employer] 05/13/2023 10:28:29 06/05/2023 text/html Patient is here to review the MRI of the patient's lumbar spine and discuss treatment options. He also has mild bilateral knee pain. Right greater than left. Mainly going up and down stairs. The patient just is curious to have his knees evaluated BERHANE MCKENNA [address], [place], [address], [employer], [facility] 06/12/2023 15:24:53
--- OUTSIDE RECORDS SUMMARY | 2025-03-03 15:19 | XMS_ITS | Clinical Summary ---
Author Organization [facility] Address [address] [place] [address] Care Team Providers Care Rn Staffing Name Role Phone Nya Perez DO Primary Care Provider [phone] Allergies No known active allergies Medications lisinopril (PRINIVIL,ZESTR IL) 10 mg tabletIndicatio ns:hypertension Take 10 mg by mouth daily before breakfast 9 Active pravastatin (PRAVACHOL) 20 mg tabletIndicatio ns:hyperlipidem ia Take 20 mg by mouth nightly 3 9 Active dorzolamide-ant olol (COSOPT) 22.3-6.8 mg/mL ophthalmic solutionIndicat ions:open angle glaucoma Administer 1 drop into both eyes daily before breakfast Active latanoprost (XALATAN) 0.005 % ophthalmic solution 1 drop nightly 2 Active latanoprost, PF, 0.005 % drops 8 Active sildenafiL (VIAGRA) 100 mg tablet Take 1 tablet (100 mg total) by mouth as needed for erectile dysfunction 10 tablet 11 2 Active tamsulosin (FLOMAX) 0.4 mg extended release capsule Take 1 capsule (0.4 mg total) by mouth daily 30 capsule 3 Active Active Problems Problem Noted Date Diagnosed Date Prostate cancer 03/05/2019 Surgical History Surgery Date Site/Laterality Comments PROSTATE BIOPSY 01/18/2019 - 02/16/2019 COLONOSCOPY 10/20/2012 - 10/19/2013 HEMORRHOID SURGERY 10/20/1978 - 10/19/1979 NASAL FRACTURE SURGERY 10/20/1971 - 10/19/1972 RADICAL PROSTATECTOMY Medical History Medical History Date Comments Hypertension DXD 1994 Glaucoma Tobacco abuse Smokes cigars 3- 4X/week Hyperlipidemia Treated with sta tin Prostate cancer (HCC) 02/2019 Family History Medical History Relation Name Comments Prostate cancer Father Anesthesia problems Neg Hx Heart disease Neg Hx Relation Name Status Comments Father Mother (Age 103) Social History Tobacco Use Types Packs/Day Years Used Date Smoking Tobacco: Every Day Cigars Smokeless Tobacco: Never Comments:Rare cigar: 5-6x/ye ar Alcohol Use Standard Drinks/Week Comments Yes 21 (1 standard drink = 0.6 oz pu re alcohol) ~3 glasses/day Sex and Gender Information Value Date Recorded Sex Assigned at Not on file Legal Sex Male 2:33 PM CDT Gender Identity Male 03/02/2020 10:45 AM CDT Sexual Orientation Not on file Obstetrics History Last Filed Vital Signs Vital Sign Reading Time Taken Comments Blood Pressure 125/70 04/07/2019 10:36 AM CDT Pulse 71 04/07/2019 10:36 AM CDT Temperature 36.4 C (97.6 F) 03/03/2020 10:48 AM CDT Respiratory Rate 14 03/31/2019 1:00 PM CDT Oxygen Saturation 100% 03/31/2019 1:00 PM CDT Inhaled Oxygen Concentration - - Weight 74.8 kg (165 lb) 03/30/2019 6:15 AM CDT Height 182.9 cm (6' 0.01 ) 03/30/2019 6:15 AM CD T Body Mass Index 22.37 03/30/2019 6:15 AM CDT Plan of Treatment Health Maintenance Due Date Last Done Comments Depression Screening 1945 Fall Risk Assessment 1945 Hepatitis C Screening 1945 Hepatitis B Screening 1965 Pneumococcal vaccine 65+ (1 of 2 - PCV) 1966 Zoster Vaccine (1 of 2) 1997 Abdominal Aortic Aneurysm (A AA) Screen 2012 Well Visit 65+ 2012 DTaP/Tdap/Td Vaccine (1 - Tdap) 10/12/2019 9 Covid-19 Vaccine (4 - 2023-2 5 season) 2024 08/13/2021, 11/28/2020, 10/31/2020 Influenza Vaccine (#1) 2024 07/30/2018 Prostate Cancer Screening-PSA Discontinued , 07/22/2022, 02/07/2022, Additional history exists Procedures Procedure Name Priority Date/Time Associated Diagnosis Comments PSA DIAGNOSTIC Routine 02/03/2023 11:45 AM CDT Prostate cancer (HCC) from Last 3 Months or Most Recently Relevant to Health Maintenance Results * PSA diagnostic (02/03/2023 11:45 AM CDT) PSA <0.1 0.0 - 4.0 ng/mL [facility] - 01 Comment: Howie ECLIA methodology. According to the [place] [employer], Serum PSA should decrease and remain at undetectable levels after radical prostatectomy. The AUA defines biochemical recurrence as an initial PSA value 0.2 ng/mL or greater followed by a subsequent confirmatory PSA value 0.2 ng/mL or greater. Values obtained with different assay methods or kits cannot be used interchangeably. Results cannot be interpreted as absolute evidence of the presence or absence of malignant disease. Blood specimen (specimen) 02/03/2023 11:45 AM CDT 02/03/2023 Narrative [facility] - 02/04/2023 12:10 PM CDT Performed at: - [address] [id number] Airline Pilot: Amilcar Maloney PhD, Phone: [phone] Eryn LAST LAB BLOOD ORDERABLES Final Result [facility] - 01 from Last 3 Months or Most Recently Relevant to Health Maintenance Insurance AARP MEDICARE [facility] MEDICARE [facility] [address] Advance Directives For more information, please contact: [phone] * Full Code (Latest Code Status on File) Date Activated Date Inactivated Comments 03/30/2019 11:35 AM 03/31/2019 8:00 PM Care Teams Rn Staffing Relationship Specialty Start Date End Date Nya Perez DO PCP - General Family Medicine 09/22/20
--- OUTSIDE RECORDS SUMMARY | 2025-03-03 15:19 | XMS_ITS | Referral Summary ---
Author Organization [facility] Address [address] [place] [address] Care Team Providers Care Escort Blind Name Role Phone Nya Perez DO Primary Care Provider [phone] Allergies No known active allergies Medications lisinopril [...] Noted Date Diagnosed Date Prostate cancer 03/05/2019 Social History Tobacco Use Types Packs/Day Years [...] AM CDT Sexual Orientation Not on file Last Filed Vital Signs Vital Sign Reading [...] 03/30/2019 6:15 AM CDT Plan of Treatment Not on file Procedures Procedure Name Priority Date/Time Associated Diagnosis Comments PSA DIAGNOSTIC Routine 02/03/2023 11:45 AM CDT Prostate cancer (HCC) from Last 3 Months or Most Recently Relevant to Health Maintenance Results * PSA diagnostic (02/03/2023 11:45 AM CDT) PSA <0.1 0.0 - 4.0 ng/mL [facility] - 01 Comment: Howie ECLIA methodology. According to the [place] [employer], Serum PSA should decrease and [...] - 02/04/2023 12:10 PM CDT Performed at: [address] [place] [id number] Fretted Instrument Inspector: Amilcar Maloney PhD, Phone: [phone] Eryn LAST LAB BLOOD ORDERABLES Final Result [facility] - 01 from Last 3 Months or Most Recently Relevant to Health Maintenance Insurance [facility]IC[facility] [employer] AARP Advance Directives For more information, please contact: [phone] * Full Code (Latest Code Status on File) Date Activated Date Inactivated Comments 03/30/2019 11:35 AM 03/31/2019 8:00 PM Care Teams Escort Blind Relationship Specialty Start Date End Date Nya Perez DO PCP - General Family Medicine 09/22/20
--- OUTSIDE RECORDS SUMMARY | 2025-03-03 15:19 | XMS_ITS | Clinical Summary ---
Author Organization [facility] Address [address] 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 This disclosure is being madepursuant to the Care Everywhere program and may not contain all information available regarding this patient. Last updated 18.[facility] [place] Immunizations Immunization Administration Dates Next Due INFLUENZA VACCINE, HIGH-DOSE , QUADR. (FLUZONE HIGH-DOSE QUADRIVALENT; 65Y+), 0.7 ML (HD-IIV4) 07/24/2020 Social History Tobacco Use Types Packs/Day Years Used Date Smoking Tobacco: Never Assessed Sex and Gender Information Value Date Recorded Sex Assigned at Not on file Legal Sex Male 10:51 AM CDT Gender Identity Not on file Sexual Orientation Not on file Plan of Treatment Health Maintenance Due Date Last Done Comments HEPATITIS C SCREENING 08/02/1963 DTAP/TDAP/TD VACCINES (1 - Tdap) 1966 PNEUMOCOCCAL VACCINE 50+ (1 of 1 - PCV) 1997 ZOSTER VACCINE (1 of 2) 1997 Respiratory Syncytial Virus (RSV) Vaccine Pt: or over 60 yrs (1 - 1-dose 75+ series) 2022 COVID-19 VACCINE ( - 2023-2 5 season) 2024 DEPRESSION SCREENING 10/20/2024 INFLUENZA VACCINE (Season Ended) 2025 07/24/20 20 HEPATITIS B VACCINE Aged Out No longe r eligible based on patient's age to complete this topic HIB VACCINE Aged Out No longer eligi ble based on patient's age to complete this topic HPV VACCINE Aged Out No longer eligi ble based on patient's age to complete this topic MENINGOCOCCAL (Group B) VACC INE SHARED DECISION-MAKING Aged Out No longer eligibl e based on patient's age to complete this topic MENINGOCOCCAL GROUPS A/C/Y/W VACCINE Aged Out No longer eligible b ased on patient's age to complete this topic Insurance [facility] MEDICARE
== END 2025-03-03 15:16 | disposition home or self-care (01) ==
PROVIDERS: PCP Family Medicine; Visit Provider Nurse Practitioner
DX: M21.851 Other specified acquired deformities of right thigh (principal); M17.11 Unilateral primary osteoarthritis, right knee; M16.11 Unilateral primary osteoarthritis, right hip; M25.461 Effusion, right knee
CPT/HCPCS: 73700

== ENCOUNTER 2025-04-28 14:15 | Outpatient (CLI) | payer MEDICARE, SELFPAY ==
--- NOTE | ~2025-04-28 | CT_ITS ---
Non-contrast CT scan of the Abdomen and Pelvis Clinical indication: Abdominal pain Technique: 2.5 mm axial scans were obtained through the abdomen and pelvis without intravenous or or al contrast. Dose reduction technique was used on this scan by utilizing automated exposure control a nd iterative reconstruction technique. The dose-length product (DLP) was 670.56 mGy-cm. Findings: Images through the lung bases reveal no abnormalities. There is a 5.5 mm round stone at the left UVJ, with moderate left hydroureteronephrosis and left terra nephric stranding. Punctate nonobstructing right renal stone present. No right ureteral stone or righ t hydronephrosis. The liver, spleen, pancreas, gallbladder, and adrenals appear normal. There are atherosclerotic calci fications of the aorta. . There is no evidence of bowel obstruction. Images through the pelvis were performed. There is no evidence of ascites or lymphadenopathy. Urinary bladder otherwise unremarkable. No pelvic mass evident. 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 Small fa t-containing right inguinal hernia present. Impression: 5.5 mm left UVJ stone with moderate left hydroureteronephrosis and left perinephric stranding. Punctate nonobstructing right renal stone. Small fat-containing right inguinal hernia. Reviewed, dictated and finalized at [facility]. Impression: 5.5 mm left UVJ stone with moderate left hydroureteronephrosis and left perinep hric stranding. Punctate nonobstructing right renal stone. Small fat-containing right inguinal hernia.
== END 2025-04-28 14:16 | disposition home or self-care (01) ==
LOC: GOSHIMG 14:16
PROVIDERS: PCP Family Medicine; Visit Provider Family Medicine
DX: N13.2 Hydronephrosis with renal and ureteral calculous obstruction (principal); N15.1 Renal and perinephric abscess; K40.90 Unilateral inguinal hernia, without obstruction or gangrene, not specified as recurrent; R19.7 Diarrhea, unspecified; R31.9 Hematuria, unspecified; Z87.442 Personal history of urinary calculi
CPT/HCPCS: 74176

== ENCOUNTER 2025-05-02 08:45 | Outpatient (RCR) | payer MEDICARE, SELFPAY ==
--- NOTE | 2025-04-11 10:50 | OPREHPOC ---
Outpatient Therapy Plan of Care This is a Multidisciplinary Plan of Care that may contain components documented by all disciplines (PT, OT, and ST.) PT Problem 1 PT Problem #1 Knowledge Deficit PT Goal 1 Goal / Goal Update 1. Patient to demonstrate independence with HEP for improved self-reliance of symptom management. Target Visit 6 PT Problem 2 PT Problem #2 Impaired Range of Motion PT Goal 1 Goal / Goal Update 1. Patient to demonstrate an increase of R hip external rotation/internal rotation active range of motion within functional limits to improve symmetrical ROM 2. Pt will improve 90/90 hamstring length to <15 Amanda, to reduce strain on lumbopelvic junction. PT Problem 3 PT Problem #3 Pain PT Goal 1 Goal / Goal Update 1. Patient to decrease subjective reports of pain to <2/10 for improved standing tolerance and ability to golf without increasing pain. Target Visit 6 PT Problem 4 PT Problem #4 Impaired Strength PT Goal 1 Goal / Goal Update 1. Patient will demonstrate improved strength of the bilateral hip abductors and extensors to 4+/5 on manual muscle testing in order to improve gait stability Target Visit 6
--- NOTE | 2025-04-11 10:51 | PTOPEVAL1 ---
Assessment and note entered by Viral Bolanos PT Evaluation Information Assessment Status Evaluation Diagnosis Back pain ICD-10 Condition Codes (PT) Pain in low back M54.50,Radiculopathy, sacral and sacrococcygeal region M54.18 Onset chronic Subjective Information Pt reports a history of chronic back pain that limits his ability to perform daily activities due to decreased standing tolerance and exercise tolerance. Pt presents with MRI results from 2022 showing degenerative changes and retrolisthesis L3 -L4. Pt reports no current radicular symptoms but notes he has felt numbness and tingling in the past, just in his feet. Pt enjoys to golf, pickle ball, exercise and stay active. Reported Pain Level Pain Score 3: Self Report Assessment PT Clinical Summary Patient presents to physical therapy with a primary issue of chronic low back pain since affecting his ability to stand or walk for prolonged periods. Pt would like to get back to higher level activities such as golfing, playing pickle ball with less pain. Patient demonstrates hip weakness, pain, decreased lumbar and R hip mobility, and decreased flexibility that limit their ability to perform activities of daily living and functional movements. Patient will benefit from skilled physical therapy to address the above listed deficits and return to prior level of function. Home exercise program instructed and written handout provided, exercises tolerated well with no adverse effects to note post-session. Patient was educated on importance of adherence to home exercise program. Patient was also educated on anatomy, prognosis, home modalities, and plan of care. Plan of Care Interventions Electrical Stimulation,Gait Training,Hot Pack/Cold Pack,Manual Therapy,Mechanical Traction,Neuro Re- education,Therapeutic Activities,Therapeutic Exercise,Other PT Services Indicated Yes Treatment Frequency and 1x week 7 visits Duration These treatments will address the objective and functional deficits as defined above. The patient will be advanced safely and appropriately in order for the patient to progress towards his/her prior level of function. Additional exercises will be introduced and as well as a comprehensive home exercise program upon discharge, if needed, ?to ensure carryover of functional gains achieved in the clinic. This treatment plan has been reviewed and agreement upon by the patient.
--- NOTE | 2025-06-08 12:22 | PTOPDC ---
Assessment and note entered by Viral Bolanos, PT Evaluation Information Assessment Status Discharge - Pt Not Present Diagnosis Back pain ICD-10 Condition Codes (PT) Pain in low back M54.50,Radiculopathy, sacral and sacrococcygeal region M54.18 Onset chronic Subjective Information Pt states he is feeling better and is back to PLOF . Assessment PT Clinical Summary Pt was called about continuation of POC. Pt states his back pain has resolved and would like to be discharged from therapy. Plan of Care PT Services Indicated No
== END 2025-06-08 13:24 | disposition home or self-care (01) ==
LOC: ANHGOSHPT 08:45
PROVIDERS: PCP Family Medicine; Visit Provider Nurse Practitioner
DX: M54.50 Low back pain, unspecified (principal); M54.18 Radiculopathy, sacral and sacrococcygeal region
CPT/HCPCS: 97110; 97112; 97140; 97161; 97530